=== PATIENT | male | born 1940 | race Caucasian/White ===

== ENCOUNTER 2017-12-01 19:43 | Emergency (ER) | payer MEDICARE, MEDICAID ==
[2017-12-01 19:50] VITALS: BP 168/82; PULSE 75; TEMP 98.4; O2SAT 97
[2017-12-01] MEDS ORDERED: Naproxen 550 mg Tab PO STA (19:55)
[2017-12-01] MEDS ORDERED: Naproxen 550 mg Tab PO ONE (20:02)
[2017-12-01] MEDS ORDERED: Oxycodone/Acetaminophen 5/325 mg Tab PO STA (20:28)
--- NOTE | 2017-12-01 20:33 | CT ---
EXAM: CT Cervical Spine Without Intravenous Contrast CLINICAL HISTORY: 77 years old, male; Pain and injury or trauma; Fall; Initial encounter; Abrasion; Neck pain TECHNIQUE: Axial computed tomography images of the cervical spine without intravenous contrast. All CT scans at this facility use one or more dose reduction techniques, viz.: automated exposure control; ma/kV adjustment per patient size (including targeted exams where dose is matched to indication; i.e. head); or iterative reconstruction technique. Coronal and sagittal reformatted images were created and reviewed. COMPARISON: No relevant prior studies available. FINDINGS: Vertebrae: No acute fracture. Straightening of cervical spine. Facet osteoarthrosis. Degenerative changes of atlantoaxial articulation. Discs/spinal canal/neural foramina: Early degenerative disc disease within upper cervical spine. Mild degenerative disc disease within mid cervical spine. Moderate degenerative disc disease within lower cervical spine. Mild disc herniations within mid and lower cervical spine, suboptimally evaluated. Multifocal neuroforaminal narrowing. Soft tissues: Unremarkable. Vasculature: Atherosclerotic disease of visualized arteries. Lung apices: Unremarkable as visualized. IMPRESSION: 1. No fracture. 2. Incidental/non-acute findings are described above.
[2017-12-01] MEDS ORDERED: Oxycodone/Acetaminophen 5/325 mg Tab ONE (20:57)
[2017-12-01] MEDS ORDERED: Lidocaine 5% Patch TD ONE (21:30)
--- NOTE | 2017-12-01 21:42 | C.PDOC ---
History Of Present Illness 77 yo male c/o right sided neck pain for 5 days. Pt notes he was at work, lifting heavy boxes and felt a pain to his neck. Pt took tylenol without significant improvement. Denies fall, change in sensation, chest pain, sob, arm pain, visual changes or headache. No difficulty breathing or swallowing. Time Seen by Provider: 12/01/17 19:50 Chief Complaint (Nursing): Back Pain History Per: Patient History/Exam Limitations: no limitations Onset/Duration Of Symptoms: Days Current Symptoms Are (Timing): Still Present Past Medical History Vital Signs: Last Vital Signs Temp 98.4 F 12/01/17 19:46 Pulse 75 12/01/17 19:46 Resp 20 12/01/17 22:01 BP 168/82 H 12/01/17 19:46 Pulse Ox 97 12/01/17 21:50 - Medical History PMH: Diabetes Denies: Chronic Kidney Disease Surgical History: Appendectomy, Cholecystectomy Family History: States: Unknown Family Hx - Social History Hx Tobacco Use: No Hx Alcohol Use: No Hx Substance Use: No - Immunization History Hx Tetanus Toxoid Vaccination: No Hx Influenza Vaccination: Yes Hx Pneumococcal Vaccination: No Review Of Systems Except As Marked, All Systems Reviewed And Found Negative. Musculoskeletal: Positive for: Neck Pain Physical Exam - Physical Exam Appears: Well, Non-toxic, No Acute Distress Skin: Normal Color, Warm, Dry Head: Atraumatic, Normacephalic Eye(s): bilateral: Normal Inspection, PERRL, EOMI Nose: Normal Oral Mucosa: Moist Throat: Normal, No Erythema, No Exudate, No Drooling Neck: Normal ROM, No Midline Cervical Tenderness, Paracervical Tenderness ((+) right sided pain and miild spasm), Supple Chest: Symmetrical Cardiovascular: Rhythm Regular Respiratory: Normal Breath Sounds Back: Normal Inspection Extremity: Normal ROM Neurological/Psych: Oriented x3, Normal Speech, Normal Motor, Normal Sensation Gait: Steady ED Course And Treatment ECG: Interpreted By Me, Viewed By Me ECG Rhythm: Sinus Rhythm Rate From EC O2 Sat by Pulse Oximetry: 97 - CT Scan/US Cervical CT Other Rad Studies (CT/US): Read By Radiologist, Radiology Report Reviewed CT/US Interpretation: EXAM: CT Cervical Spine Without Intravenous Contrast. CLINICAL HISTORY: 77 years old, male; Pain and injury or trauma; Fall; Initial encounter; Abrasion; Neck pain. TECHNIQUE: Axial computed tomography images of the cervical spine without intravenous contrast. All CT scans. at this facility use one or more dose reduction techniques, viz.: automated exposure control; ma/kV. adjustment per patient size (including targeted exams where dose is matched to indication; i.e. head);. or iterative reconstruction technique. Coronal and sagittal reformatted images were created and reviewed. COMPARISON: No relevant prior studies available. FINDINGS: Vertebrae: No acute fracture. Straightening of cervical spine. Facet osteoarthrosis. Degenerative. changes of atlantoaxial articulation. Discs/spinal canal/neural foramina: Early degenerative disc disease within upper cervical spine. Mild degenerative disc disease within mid cervical spine. Moderate degenerative disc disease within. lower cervical spine. Mild disc herniations within mid and lower cervical spine, suboptimally. evaluated. Multifocal neuroforaminal narrowing. Soft tissues: Unremarkable. Vasculature: Atherosclerotic disease of visualized arteries. Lung apices: Unremarkable as visualized. IMPRESSION: [facility]. [facility]. Final Radiology Report [id number]. Name: BRENDA TERRY Age: 77Years M Date: 12/01/2017. SSN : [id number] : 1940. Study: CT SPINE CERVICAL WO Requesting Physician : Kalie Garner PA-C. Images: 455. Addl Studies: Provided Clinical History: pain. CONFIDENTIALITY STATEMENT. This transmission is confidential and is intended to be a privileged communication. It is intended only for the use of the addressee. Access to this. message by anyone else is unauthorized. If you are not the intended recipient, any disclosure, copying, distribution or any action taken, or omitted to. be taken in reliance on it is prohibited and may be unlawful. If you received this communication in error, please notify us by telephone, so that return. of this document to us can be arranged. Page 2 of 2. 1. No fracture. 2. Incidental/non-acute findings are described above. Thank you for allowing us to participate in the care of your patient. Dictated and Authenticated by: Eloy James MD. 12/01 8:33 PM Eastern Time ([place] & [place] Progress Note: Naproxen and Flexeril ordered. On re-evaluation, pt notes pain persists. Lidocaine patch and percocet ordered. On reassessment, patient resting comfortably, neck pain has improved, no fever, no bony tenderness, no numbness, no weakness, no headache. Patient is ambulatory in the emergency department with no discomfort. Patient was instructed to follow up with physician/clinic in 1-2 days for further evaluation or return to ED if symptoms persist or worsen. Disposition - Disposition Referrals: Robert Moon MD [Non-Staff] - Disposition: HOME/ ROUTINE Disposition Time: 21:48 Condition: STABLE Additional Instructions: Vaya a dunlap mdico o la clnica en 2-5 barclay sin falta, para mas evaluacin. [place] los medicamentos lainey indicado. Volver a la clau de emergencia en cualquier momento si los sntomas persisten o empeoran. Prescriptions: Cyclobenzaprine [Cyclobenzaprine HCl] 10 mg PO TID #20 tab Lidocaine 5% [Lidoderm] 1 patch TOP DAILY PRN #5 patch PRN Reason: Pain, Moderate (4-7) Naproxen [Naprosyn] 1 tab PO BID PRN #20 tab PRN Reason: Pain Instructions: Cervical Strain (DC) Forms: [employer] (Uzbek) Print Language: PERSIAN - Clinical Impression Clinical Impression: Cervical strain
[2017-12-01 22:02] VITALS: RESP 20
--- NOTE | 2017-12-02 12:05 | CARD ---
APPROVED REPORT EKG Measurement Heart [id number] <Conclusion> Normal sinus rhythm Normal ECG
== END 2017-12-01 22:01 | disposition home or self-care (01) ==
LOC: C.ER 19:43
DX: S16.1XXA Strain of muscle, fascia and tendon at neck level, initial encounter (principal); X50.0XXA Overexertion from strenuous movement or load, initial encounter; Y92.89 Other specified places as the place of occurrence of the external cause; Y99.0 Civilian activity done for income or pay

== ENCOUNTER 2018-04-16 10:00 | Emergency (ER) | payer MEDICAID, MEDICARE ==
[2018-04-16 10:05] VITALS: RESP 20
--- NOTE | 2018-04-16 10:48 | C.PDOC ---
History Of Present Illness 78 y/o male with a history of diabetes and HTN presents to the ED with chest pain and back pain. Patient reports it began a few days ago with non- radiating pain a 6/10. He also complains of left chest and left rib area pain with a ferocious cough. Patient states he noticed red dots on his back and chest area that are abnormal to him. He also noticed a small red abrasion on the right breast. Patient complains his belly is larger than normal stating it feels bloated but denies abdominal pain. Denies any fever or chills. Of note, patient occasionally takes blood pressure medication. 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 PMD: Dr. Frank Riggs Time Seen by Provider: 04/16/18 10:28 Chief Complaint (Nursing): Chest Pain History/Exam Limitations: no limitations Onset/Duration Of Symptoms: Days Current Symptoms Are (Timing): Still Present Quality: "Pain" Recent travel outside of the [place]: No Past Medical History Reviewed: Historical Data, Nursing Documentation, Vital Signs Vital Signs: Last Vital Signs Temp 97.9 F 04/16/18 14:11 Pulse 74 04/16/18 14:11 Resp 20 04/16/18 14:11 BP 120/68 04/16/18 14:11 Pulse Ox 95 04/16/18 14:11 - Medical History PMH: Diabetes, HTN Denies: Chronic Kidney Disease Surgical History: Appendectomy, Cholecystectomy Family History: States: Unknown Family Hx - Social History Hx Tobacco Use: No Hx Alcohol Use: Yes Hx Substance Use: No - Immunization History Hx Tetanus Toxoid Vaccination: No (unk) Hx Influenza Vaccination: Yes Hx Pneumococcal Vaccination: Yes Review Of Systems Except As Marked, All Systems Reviewed And Found Negative. Constitutional: Negative for: Fever, Chills Cardiovascular: Positive for: Chest Pain Respiratory: Positive for: Cough Gastrointestinal: Positive for: Other (bloated abdomen). Negative for: Abdominal Pain Musculoskeletal: Positive for: Back Pain Skin: Positive for: Other (red dots throughout chest and back) Physical Exam - Physical Exam Appears: Non-toxic, No Acute Distress Skin: Rash (abrasion above right breast), Other (petechiae to chest and back area) Head: Atraumatic Eye(s): bilateral: Normal Inspection, PERRL, EOMI Throat: Normal Neck: Normal Cardiovascular: Rhythm Regular, No Murmur Respiratory: Normal Breath Sounds Gastrointestinal/Abdominal: Normal Exam, Soft, No Tenderness Back: Normal Inspection Extremity: Normal ROM, No Pedal Edema Neurological/Psych: Oriented x3 ED Course And Treatment - Laboratory Results Result Diagrams: 04/16/18 11:06 04/16/18 11:06 ECG: Interpreted By Me, Viewed By Me Interpretation Of ECG: normal sinus rhythm, no st evelations or depressions Rate From EC O2 Sat by Pulse Oximetry: 96 (RA) Pulse Ox Interpretation: Normal Medical Decision Making Medical Decision Making: Time: 10:04 Impression: Cough, bronchitis, seasonal allergies Initial Plan: * B-Type Natriuretic * CMP * Troponin I Stat * CBC * Obstructive Series Scribe Attestation: Documented by Bhupendra Silva acting as a scribe Monei Gaitan MD. Scribe Attestation: All medical record entries made by the Scribe were at my direction and personally dictated by me. I have reviewed the chart and agree that the record accurately reflects my personal performance of the history, physical exam, medical decision making, and the department course for this patient. I have also personally directed, reviewed, and agree with the discharge instructions and disposition. Disposition Counseled Patient/Family Regarding: Studies Performed, Diagnosis, Need For Followup - Disposition Disposition: HOME/ ROUTINE Disposition Time: 13:59 Condition: STABLE Prescriptions: Azithromycin 1 tab PO DAILY #6 tab Docusate Sodium [Dulcolax Stool Softener] 100 mg PO BID #20 capsule Ibuprofen [Motrin] 1 tab PO TID PRN #30 tab PRN Reason: Pain Prednisone [Deltasone] 60 mg PO DAILY #12 tablet Psyllium Husk/Aspartame [Metamucil Fiber Singles Packet] 3.4 gm PO DAILY #10 powd.pack Instructions: Constipation in Adults, Acute Bronchitis, Adult (DC) Forms: Gen Discharge Inst Panamanian, [facility] (Panamanian) - Clinical Impression Clinical Impression: Bronchitis
[2018-04-16 11:09] LABS: BASO # 0.1 K/uL (0.0-0.2); BASO % 0.6 % (0.0-2.0); EOS # 0.1 K/uL (0.0-0.7); EOS % 0.6 % (0.0-4.0); HEMOGLOBIN 14.1 g/dL (12.0-18.0); LYMPH % 19.8 % (20.0-40.0); MEAN CELL VOLUME 93.1 fL (80.0-94.0); MEAN CORPUSCULAR HEMOGLOBIN 33.4 pg (27.0-31.0); MEAN CORPUSCULAR HGB CONC 35.9 g/dL (33.0-37.0); MEAN PLATELET VOLUME 8.4 fL (7.2-11.7); MONO # 0.5 K/uL (0.0-0.8); MONO % 4.9 % (0.0-10.0); NEUT # 7.6 K/uL (1.8-7.0); NEUT % 74.1 % (50.0-75.0); RBC 4.23 Mil/uL (4.40-5.90); RED CELL DISTRIBUTION WIDTH 12.8 % (11.5-14.5); WHITE BLOOD COUNT 10.3 K/uL (4.8-10.8)
[2018-04-16 11:25] LABS: ALB/GLOB RATIO 1.2 (1.0-2.1); ALBUMIN 4.2 g/dL (3.5-5.0); ALT/SGPT 32 U/L (21-72); AST/SGOT 31 U/L (17-59); BLOOD UREA NITROGEN 21 mg/dL (9-20); CALCIUM 9.6 mg/dl (8.6-10.4); GFR AFRICAN-AMERICAN > 60; GFR NON-AFRICAN AMERICAN > 60
--- NOTE | 2018-04-16 11:44 | RAD ---
Abdomen four views History: Abdominal pain. Comparison: None available. Findings Elevated right hemidiaphragm. Linear atelectasis at the left lung base. Mild venous congestion. Right hilar prominence. Upper lobe granulomatous changes. Calcification at the aortic knob. Degenerative changes in the spine and shoulders. Surgical clips in the right upper abdomen. Mild levo scoliotic curvature of the lumbar spine. Moderate fecal retention in the colon. Few mildly distended loops of small bowel seen within the mid and left yasmine abdomen. Small rounded radiopaque calcifications seen in the lateral aspect of the right abdomen, nonspecific. Calcified phleboliths in the pelvis. Degenerative changes in the bilateral hips. Impression: Moderate fecal retention in the colon. Few mildly distended loops of small bowel in the mid to left abdomen.
[2018-04-16 14:11] VITALS: BP 120/68; PULSE 74; TEMP 97.9
[2018-04-17 09:33] VITALS: O2SAT 96
--- NOTE | 2018-04-19 13:43 | CARD ---
APPROVED REPORT EKG Measurement Heart [id number] <Conclusion> Normal sinus rhythm Normal ECG
== END 2018-04-16 14:12 | disposition home or self-care (01) ==
LOC: C.ER 10:00
DX: J40 Bronchitis, not specified as acute or chronic (principal); E11.9 Type 2 diabetes mellitus without complications; I10 Essential (primary) hypertension